=== PATIENT | female | born 1990 | race American Indian/Alaskan Native ===

== ENCOUNTER 2020-03-09 03:16 | Outpatient (CLI) | payer MEDICAID ==
[2020-03-09] MEDS ORDERED: LACTATED RINGERS 1,000 ML IV ONE ×2 (03:55→07:33)
[2020-03-09] MEDS ORDERED: TERBUTALINE 1 MG/1 ML INJ SUB-Q ONE (04:10)
[2020-03-09 04:29] LABS: Bacteria,Urine 1+ /HPF (Negative); Bilirubin,Urine NEG (Negative); Blood,Urine NEG (Negative); Color,Urine Yellow (Yellow); Hyaline Casts,Urine 1 /LPF; Mucus,Urine FEW /HPF; Urobilinogen,Urine < 2.0 mg/dL (<2.0)
[2020-03-09 04:33] LABS: Amphetamine Screen,Urine PRESUMPTIVE NEGATIVE; Benzodiazepines Screen,Urine PRESUMPTIVE NEGATIVE; Cannabinoid Screen,Urine PRESUMPTIVE POSITIVE; Cocaine Screen,Urine PRESUMPTIVE NEGATIVE; Methadone Screen,Urine PRESUMPTIVE NEGATIVE; Opiate Screen,Urine PRESUMPTIVE NEGATIVE
--- NOTE | 2020-03-09 06:48 | Ultrasound Report ---
ULTRASOUND OBSTETRIC INDICATION / CLINICAL INFORMATION: EDC, EGA, location and integrity of placenta, pres. TECHNIQUE: Transabdominal. COMPARISON: None available. FINDINGS: There is a single intrauterine . Biparietal Diameter = 5.7 cm = 23.4 weeks.days Head Circumference = 20.8 cm = 22.6 weeks.days Abdominal Circumference = 20.3 cm = 25.0 weeks.days Femur Length = 4.1 cm = 23.2 weeks.days Average Ultrasound Age (AUA) = 23.5 weeks.days Heart Rate: 146 beats per minute. Estimated Weight in grams (if calculated): 657 Position: cephalic. Cervix: closed. Placenta: anterior and free of the os. Amniotic Fluid Volume: normal Amniotic Fluid Index (NEHEMIAS) in cm (if calculated): 618. Maternal Adnexa: No significant abnormality. IMPRESSION: 1. Single, living intrauterine with estimated sonographic age of 23.5 weeks.days 2. No significant sonographic abnormality. Signer Name: Anup Lynch MD Signed: 03/09/2020 6:44 AM Workstation Name: [id number]
[2020-03-09] MEDS ORDERED: TERBUTALINE 1 MG/1 ML INJ SUB-Q NR (07:26)
[2020-03-09] MEDS ORDERED: hydrOXYzine PAMOATE 25 MG CAP PO NR (07:54)
[2020-03-09] MEDS ORDERED: BUTORPHANOL 2 MG/1 ML INJ IV PRN (09:00)
[2020-03-09] MEDS ORDERED: LACTATED RINGERS 1,000 ML IV SCH ×2 (10:00→11:00)
[2020-03-09] MEDS ORDERED: NITROFURANTOIN MONOHYD/M-CRYST 100 MG CAP PO SCH (11:00)
[2020-03-09 11:03] VITALS: BP 107/67
== END 2020-03-09 12:40 | disposition home or self-care (01) ==
LOC: TRG 03:16 → APU 03:17 → LD 11:12 → TRG 12:40
PROVIDERS: ATTEND Obstetrics & Gynecology
DX: O26.892 Other specified pregnancy related conditions, second trimester (principal); R10.30 Lower abdominal pain, unspecified; M54.5 Low back pain; M79.605 Pain in left leg; Z20.828 Contact with and (suspected) exposure to other viral communicable diseases; Z87.891 Personal history of nicotine dependence; Z3A.24 24 weeks gestation of pregnancy
CPT/HCPCS: 76816; 80307; 81001; 96361; 96372; 96374; J0595; J3105; J7120; U0003; 96360; 96375

== ENCOUNTER 2020-04-26 08:17 | Outpatient (CLI) | payer MEDICAID ==
[2020-04-26] MEDS ORDERED: LACTATED RINGERS 1,000 ML IV SCH (09:30)
[2020-04-26] MEDS ORDERED: LACTATED RINGERS 1,000 ML ONE (09:33)
[2020-04-26 10:01] LABS: Hematocrit 39.9 % (30.3-42.9); Hemoglobin 13.6 gm/dl (10.1-14.3); Mean Corpuscular HGB Conc 34 % (30-34); Mean Corpuscular Volume 98 fl (79-97); Platelet Count 217 K/mm3 (140-440); Red Blood Count 4.06 M/mm3 (3.65-5.03); Red Cell Distribution Width 13.3 % (13.2-15.2)
[2020-04-26 10:11] LABS: Amphetamine Screen,Urine Negative; Benzodiazepines Screen,Urine Negative; Cocaine Screen,Urine Negative; Methadone Screen,Urine Negative; Opiate Screen,Urine Negative
[2020-04-26 10:15] LABS: Bacteria,Urine 1+ /HPF (Negative); Bilirubin,Urine NEG (Negative); Blood,Urine MOD (Negative); Color,Urine Yellow (Yellow); Mucus,Urine FEW /HPF
[2020-04-26 10:16] LABS: Protein,Urine >500 mg/dL (Negative)
[2020-04-26 10:23] LABS: Alanine Aminotransferase 7 units/L (7-56); Albumin 2.8 g/dL (3.9-5); Blood Urea Nitrogen 5 mg/dL (7-17); Calcium 8.5 mg/dL (8.4-10.2); Hemolysis Index 1; Uric Acid 5.8 mg/dL (3.5-7.6)
[2020-04-26 10:32] LABS: BUN/Creatinine Ratio 7
[2020-04-26 11:11] LABS: Cannabinoid Screen,Urine PRESUMPTIVE POSITIVE
[2020-04-26 11:13] VITALS: BP 133/96
--- NOTE | 2020-04-26 11:30 | Ultrasound Report ---
ULTRASOUND OBSTETRIC LIMITED INDICATION / CLINICAL INFORMATION: well being, vag bleeding. Clinical Gestational Age (GA): 31.0 weeks.days COMPARISON: 03/09/2020 oh the ultrasound FINDINGS: HEART RATE (beats per minute): None visualized. PRESENTATION: Cephalic. ADDITIONAL FINDINGS: Anterior, grade 2 placenta. Cervical length is 3.4 cm IMPRESSION: 1. No heart tones are detected on today's examination. Recommend clinical correlation and close continued follow-up. IMPORTANT FINDING: Time of Communication (DATA ANALYTICS DEVELOPER/CDT): 1020 Licensed Practitioner Receiving Report: Dr. Miller Signer Name: Nhan Barron MD Signed: 04/26/2020 11:26 AM Workstation Name: [id number]
--- NOTE | 2020-04-26 11:33 | Event Note ---
Date: 04/26/20 32-year-old at 31 weeks [address] Skelton presenting with vaginal spotting with wiping. In triage, patient receiving ultrasound showing no FHTs, with an anterior placenta, and placental lakes and calcs suggestive of an intrauterine demise possibly secondary to placental abruption. Patient felt movement prior earlier that day. No issues with the per patient report. During assessment patient noted to have elevated blood pressures from 140s to 160s and PIH labs were ordered. There was concern for severe preeclampsia leading to the diagnosis of placental abruption. Patient was informed of all this information resulted in significant distress to the patient desiring to leave AMA. After extensive discussion warning her against AMA secondary to demise and severe preeclampsia with risk of eclampsia and/or . Patient still desired to leave and signed AMA forms. Triage nurse Francesca and L&D charge nurse Amy present for discussion. Past medical history denies Past medical history x1, hemorrhoidectomy Medications denies Social history history of tobacco use and marijuana use earlier in [employer] history negative OB history G3, P2 with x1 in 2007 and x1 in 2008 secondary to nonreassuring heart tones Family history hypertension
== END 2020-04-26 11:18 | disposition left against medical advice (07) ==
LOC: EDSTATUS 08:43 → TRG 08:47 → APU 08:48 → LD 10:53 → TRG 11:18
PROVIDERS: ATTEND Obstetrics & Gynecology
DX: O46.8X3 Other antepartum hemorrhage, third trimester (principal); O26.893 Other specified pregnancy related conditions, third trimester; R10.9 Unspecified abdominal pain; Z3A.31 31 weeks gestation of pregnancy
CPT/HCPCS: 36415; 76815; 80053; 80307; 81001; 82565; 83615; 84550; 85027; 85379; 85384; 86850; 86900; 86901; J7120